=== PATIENT | male | born 1985 ===

== ENCOUNTER 2020-10-12 21:04 | Emergency (ER) | payer OTHER ==
[~2020-10-12] VITALS: Ht 185.4 cm; Wt 153.8 kg
[2020-10-12 21:14] VITALS: BP 146/92
== END 2020-10-13 02:16 | disposition home or self-care (01) ==
LOC: ER 21:04
DX: S63.91XA Sprain of unspecified part of right wrist and hand, initial encounter (principal); Z88.0 Allergy status to penicillin; W20.8XXA Other cause of strike by thrown, projected or falling object, initial encounter; Y93.89 Activity, other specified; Y92.89 Other specified places as the place of occurrence of the external cause; Y99.0 Civilian activity done for income or pay
CPT/HCPCS: 73130